=== PATIENT | male | born 1990 | race Caucasian/White ===

== ENCOUNTER 2020-02-08 07:49 | Emergency (ER) | payer MEDICAID ==
[~2020-02-08] VITALS: Ht 177.8 cm; Wt 54.8 kg
[2020-02-08 07:54] VITALS: BP 114/74
[2020-02-08] MEDS ORDERED: CLOT10TR5 PO (08:17)
== END 2020-02-08 08:27 | disposition home or self-care (01) ==
LOC: ER 07:50
DX: B37.0 Candidal stomatitis (principal); J45.909 Unspecified asthma, uncomplicated
CPT/HCPCS: 99283

== ENCOUNTER 2020-02-25 01:52 | Emergency (ER) | payer MEDICAID ==
[~2020-02-25] VITALS: Ht 175.3 cm; Wt 72.7 kg
[~2020-02-25 01:52] MED LIST: CLOT10TR5 PO
[2020-02-25 02:03] VITALS: BP 126/101
--- NOTE | 2020-02-25 02:08 | NUR ---
Patient complains of bilateral leg swelling that is [email or web address]. Patient originally denies meth use but eventually admits to, "smoking only three times so far."
== END 2020-02-25 02:24 | disposition home or self-care (01) ==
LOC: ER 01:53
DX: M79.605 Pain in left leg (principal); F15.90 Other stimulant use, unspecified, uncomplicated; J45.909 Unspecified asthma, uncomplicated; R22.42 Localized swelling, mass and lump, left lower limb; F12.90 Cannabis use, unspecified, uncomplicated; Z79.899 Other long term (current) drug therapy
CPT/HCPCS: 99281